=== PATIENT | male | born 1990 | race Hispanic/Latino ===

== ENCOUNTER 2016-08-03 20:54 | Emergency (ER) | payer OTHER ==
[~2016-08-03] VITALS: Ht 170.2 cm; Wt 87.5 kg
[2016-08-03 23:13] LABS: HEMATOCRIT 41.5 % (38.0-50.0); MCH 25.9 PG (29.0-34.0); MCHC 32.3 G/DL (30.0-36.0); MCV 80.1 FL (86-99); MEAN PLAT.VOLUME 9.3 uM^3 (9.0-12.4); PLATELET COUNT 562 K/uL (156-360); RBC DIS.WIDTH-CV 13.1 % (11.8-14.6); RED BLOOD COUNT 5.18 M/uL (4.00-5.50); WHITE BLOOD COUNT 14.1 K/uL (4.1-10.2)
[2016-08-03 23:25] LABS: CHLORIDE 98 mEq/L (99-109); POTASSIUM 4.4 mEq/L (3.7-5.4); SODIUM 134 mEq/L (136-147)
[2016-08-03 23:27] LABS: GLUCOSE 100 mg/dL (70-99)
[2016-08-03 23:29] LABS: ANION GAP 11 MEQ/L (2-14); TOTAL BILIRUBIN 0.4 mg/dL (0.0-1.0)
[2016-08-03 23:31] LABS: ALKALINE PHOSPHATASE 342 IU/L (3-129); GFR ESTIMATE (CALCULATED) > 59 mL/min/
[2016-08-03 23:32] LABS: UREA NITROGEN (BUN) 18 mg/dL (9-23)
[2016-08-03 23:34] LABS: LIPASE 32 U/L (1.0-51.0)
[2016-08-04 00:49] LABS: ADD MIUA? YES; BILIRUBIN NEGATIVE; BLOOD SMALL; COLOR YELLOW ((YELLOW)); GLUCOSE (STRIP) NEGATIVE; KETONES NEGATIVE; LEUKOCYTES NEGATIVE; NITRITE NEGATIVE; PROTEIN (STRIP) 30; SPECIFIC GRAVITY 1.025 (1.000-1.030); UROBILINOGEN 0.2 MG/DL (0.2-1.0)
[2016-08-04 01:25] LABS: BACTERIA NONE SEEN /HPF; EPITHELIAL CELLS NONE SEEN /HPF; MUCUS TRACE /LPF; RED BLOOD CELLS 0-5 /HPF (0-5); UCUL ADDED? NO; WHITE BLOOD CELLS 0-5 /HPF (0-5)
[2016-08-04] MEDS ORDERED: PERCOCET 5/31 TABLET PO (03:15)
[2016-08-04 03:45] VITALS: BP 96/89
== END 2016-08-04 03:56 | disposition home or self-care (01) ==
LOC: EME 20:54
PROVIDERS: Emergency Medicine
DX: G89.18 Other acute postprocedural pain (principal); R94.5 Abnormal results of liver function studies; S31.105A Unspecified open wound of abdominal wall, periumbilic region without penetration into peritoneal cavity, initial encounter; Z93.3 Colostomy status; Z90.49 Acquired absence of other specified parts of digestive tract
CPT/HCPCS: 74177; 80053; 81003; 83605; 83690; 85027; 99281; 99285; J2270; J2405; J7030

== ENCOUNTER 2016-08-05 21:56 | Emergency (ER) | payer OTHER ==
[~2016-08-05] VITALS: Ht 172.7 cm; Wt 89.3 kg
[~2016-08-05 21:56] MED LIST: PERCOCET 5/31 TABLET PO
[2016-08-05 22:33] LABS: HEMATOCRIT 37.1 % (38.0-50.0); MCH 26.1 PG (29.0-34.0); MCHC 31.8 G/DL (30.0-36.0); MCV 82.1 FL (86-99); MEAN PLAT.VOLUME 9.5 uM^3 (9.0-12.4); PLATELET COUNT 462 K/uL (156-360); RBC DIS.WIDTH-CV 13.2 % (11.8-14.6); RBC DIS.WIDTH-SD 39.7 % (39-53); RED BLOOD COUNT 4.52 M/uL (4.00-5.50); WHITE BLOOD COUNT 10.8 K/uL (4.1-10.2)
[2016-08-05 22:43] LABS: CHLORIDE 106 mEq/L (99-109); POTASSIUM 4.2 mEq/L (3.7-5.4); SODIUM 139 mEq/L (136-147)
[2016-08-05 22:45] LABS: GLUCOSE 106 mg/dL (70-99)
[2016-08-05 22:46] LABS: ANION GAP 8 MEQ/L (2-14)
[2016-08-05 22:48] LABS: TOTAL BILIRUBIN 0.2 mg/dL (0.0-1.0)
[2016-08-05 22:49] LABS: GFR ESTIMATE (CALCULATED) > 59 mL/min/
[2016-08-05 22:50] LABS: UREA NITROGEN (BUN) 13 mg/dL (9-23)
[2016-08-05 22:57] LABS: ALKALINE PHOSPHATASE 255 IU/L (3-129)
[2016-08-06 00:27] LABS: ADD MIUA? NO; BILIRUBIN NEGATIVE; BLOOD NEGATIVE; COLOR YELLOW ((YELLOW)); GLUCOSE (STRIP) NEGATIVE; KETONES NEGATIVE; LEUKOCYTES NEGATIVE; NITRITE NEGATIVE; PROTEIN (STRIP) 30; SPECIFIC GRAVITY 1.031 (1.000-1.030); UCUL ADDED? NO; UROBILINOGEN 0.2 MG/DL (0.2-1.0)
[2016-08-06 11:13] VITALS: BP 101/55
== END 2016-08-06 11:14 | disposition short-term general hospital (02) ==
LOC: EME 21:56
DX: K51.90 Ulcerative colitis, unspecified, without complications (principal); T81.30XA Disruption of wound, unspecified, initial encounter; Y83.3 Surgical operation with formation of external stoma as the cause of abnormal reaction of the patient, or of later complication, without mention of misadventure at the time of the procedure; R10.9 Unspecified abdominal pain; G89.18 Other acute postprocedural pain; R50.82 Postprocedural fever; Z93.3 Colostomy status; Z09 Encounter for follow-up examination after completed treatment for conditions other than malignant neoplasm
CPT/HCPCS: 74177; 80053; 81003; 83605; 85027; 87040; 99281; 99285; J0692; J2270; J2405; J7030; J7050

== ENCOUNTER 2016-09-06 07:49 | Emergency (ER) | payer OTHER ==
[~2016-09-06] VITALS: Ht 172.7 cm; Wt 85.5 kg
[2016-09-06 09:29] LABS: EOSINOPHIL (%) 0.5 % (0-5); EOSINOPHIL COUNT 0.1 K/uL (0-0.3); HEMATOCRIT 42.2 % (38.0-50.0); IMMATURE GRANULOCYTE (%) 0.3 % (0.0-0.7); INSTRUMENT ABS NEUTROPHIL CT 7.1 K/uL; LYMPHOCYTE COUNT 2.3 K/uL (1.0-2.8); MCHC 32.9 G/DL (30.0-36.0); MCV 78.9 FL (86-99); MEAN PLAT.VOLUME 10.4 uM^3 (9.0-12.4); MONOCYTE (%) 6.9 % (3-12); MONOCYTE COUNT 0.7 K/uL (0-0.8); NEUTROPHIL (%) 69.3 % (45-76); NEUTROPHIL COUNT 7.1 K/uL (1.8-6.4); PLATELET COUNT 300 K/uL (156-360); RBC DIS.WIDTH-CV 13.8 % (11.8-14.6); RBC DIS.WIDTH-SD 39.2 % (39-53); RED BLOOD COUNT 5.35 M/uL (4.00-5.50); WHITE BLOOD COUNT 10.3 K/uL (4.1-10.2)
[2016-09-06 09:37] LABS: CHLORIDE 102 mEq/L (99-109); POTASSIUM 3.3 mEq/L (3.7-5.4); SODIUM 136 mEq/L (136-147)
[2016-09-06 09:39] LABS: GLUCOSE 114 mg/dL (70-99)
[2016-09-06 09:40] LABS: ANION GAP 11 MEQ/L (2-14)
[2016-09-06 09:41] LABS: TOTAL BILIRUBIN 0.8 mg/dL (0.0-1.0)
[2016-09-06 09:43] LABS: ALKALINE PHOSPHATASE 304 IU/L (3-129); GFR ESTIMATE (CALCULATED) > 59 mL/min/
[2016-09-06 09:44] LABS: UREA NITROGEN (BUN) 7 mg/dL (9-23)
[2016-09-06 09:49] LABS: TROP-I INTERPRETATION NEGATIVE; TROPONIN-I < 0.01 ng/mL (0.0-0.30)
[2016-09-06 09:56] LABS: ADD MIUA? YES; BILIRUBIN NEGATIVE; BLOOD NEGATIVE; COLOR YELLOW ((YELLOW)); GLUCOSE (STRIP) NEGATIVE; KETONES NEGATIVE; LEUKOCYTES TRACE; NITRITE NEGATIVE; PROTEIN (STRIP) NEGATIVE; SPECIFIC GRAVITY 1.011 (1.000-1.030); UROBILINOGEN 0.2 MG/DL (0.2-1.0)
[2016-09-06 10:01] LABS: BACTERIA RARE /HPF; CALCIUM OXALATE CRYSTALS 2+ /HPF; EPITHELIAL CELLS RARE /HPF; GRANULAR CASTS 0-5 /LPF; MUCUS NONE SEEN /LPF; RED BLOOD CELLS 0-5 /HPF (0-5); UCUL ADDED? NO; URIC ACID CRYSTALS 1+ /HPF; WHITE BLOOD CELLS 15-20 /HPF (0-5)
[2016-09-06] MEDS ORDERED: KEFLEX500 MG PO (13:02)
[2016-09-06] MEDS ORDERED: K-DUR20 MEQ PO (13:02)
[2016-09-06] MEDS ORDERED: ZOFRAN4 MG PO (13:02)
[2016-09-06 14:52] VITALS: BP 126/85
[2016-09-07] MEDS ORDERED: PERCOCET 5/31 TABLET PO (14:04)
[2016-09-07] MEDS ORDERED: ZOFRAN4 MG PO (14:04)
== END 2016-09-06 14:52 | disposition home or self-care (01) ==
LOC: EME 07:49
PROVIDERS: Emergency Medicine
DX: N39.0 Urinary tract infection, site not specified (principal); E87.6 Hypokalemia; K51.90 Ulcerative colitis, unspecified, without complications; Z90.49 Acquired absence of other specified parts of digestive tract; Z93.3 Colostomy status
CPT/HCPCS: 71020; 71275; 74177; 80053; 81003; 83605; 84484; 85025; 87040; 93005; 99281; 99284; J2405; J3010

== ENCOUNTER 2016-09-07 10:59 | Emergency (ER) | payer OTHER ==
[~2016-09-07] VITALS: Ht 172.7 cm; Wt 85.6 kg
[~2016-09-07 10:59] MED LIST changes: +K-DUR20 MEQ PO; +KEFLEX500 MG PO; +ZOFRAN4 MG PO
[2016-09-07 11:38] LABS: HEMATOCRIT 38.7 % (38.0-50.0); MCH 26.4 PG (29.0-34.0); MCHC 32.8 G/DL (30.0-36.0); MCV 80.5 FL (86-99); MEAN PLAT.VOLUME 10.9 uM^3 (9.0-12.4); PLATELET COUNT 236 K/uL (156-360); RBC DIS.WIDTH-SD 41.1 % (39-53); RED BLOOD COUNT 4.81 M/uL (4.00-5.50); WHITE BLOOD COUNT 7.9 K/uL (4.1-10.2)
[2016-09-07 11:53] LABS: CHLORIDE 108 mEq/L (99-109); POTASSIUM 3.7 mEq/L (3.7-5.4); SODIUM 139 mEq/L (136-147)
[2016-09-07 11:55] LABS: GLUCOSE 97 mg/dL (70-99)
[2016-09-07 11:56] LABS: ANION GAP 10 MEQ/L (2-14)
[2016-09-07 11:58] LABS: GFR ESTIMATE (CALCULATED) > 59 mL/min/
[2016-09-07 11:59] LABS: UREA NITROGEN (BUN) 8 mg/dL (9-23)
[2016-09-07 12:01] LABS: TROP-I INTERPRETATION NEGATIVE; TROPONIN-I < 0.01 ng/mL (0.0-0.30)
[2016-09-07] MEDS ORDERED: PERCOCET 5/31 TABLET PO (14:04)
[2016-09-07] MEDS ORDERED: ZOFRAN4 MG PO (14:04)
[2016-09-07 14:22] VITALS: BP 133/94
== END 2016-09-07 14:28 | disposition home or self-care (01) ==
LOC: EME 10:59
DX: G89.29 Other chronic pain (principal); R07.9 Chest pain, unspecified; R10.9 Unspecified abdominal pain; Z90.49 Acquired absence of other specified parts of digestive tract; Z93.3 Colostomy status; T81.30XA Disruption of wound, unspecified, initial encounter; R11.0 Nausea; K51.90 Ulcerative colitis, unspecified, without complications
CPT/HCPCS: 71020; 80048; 84484; 85027; 93005; 99281; 99284

== ENCOUNTER 2017-07-22 19:51 | Emergency (ER) | payer SELFPAY ==
[~2017-07-22] VITALS: Ht 175.3 cm; Wt 74.3 kg
[2017-07-22 20:28] LABS: HEMATOCRIT 40.6 % (38.0-50.0); HEMOGLOBIN 13.2 G/DL (12.5-16.6); MCHC 32.5 G/DL (30.0-36.0); MCV 76.7 FL (86-99); RBC DIS.WIDTH-CV 16.9 % (11.8-14.6); RBC DIS.WIDTH-SD 47.2 % (39-53); RED BLOOD COUNT 5.29 M/uL (4.00-5.50); WHITE BLOOD COUNT 9.3 K/uL (4.1-10.2)
[2017-07-22 20:37] LABS: CHLORIDE 105 mEq/L (99-109); POTASSIUM 4.3 mEq/L (3.7-5.4); SODIUM 140 mEq/L (136-147)
[2017-07-22 20:38] LABS: MAGNESIUM 2.3 mg/dL (1.3-2.7)
[2017-07-22 20:39] LABS: GLUCOSE 117 mg/dL (70-99)
[2017-07-22 20:43] LABS: CREATININE 1.1 mg/dL (0.6-1.3); GFR ESTIMATE (CALCULATED) > 59 mL/min/ (58.99-99999)
[2017-07-22 20:44] LABS: UREA NITROGEN (BUN) 10 mg/dL (9-23)
[2017-07-22 20:45] LABS: CREATINE KINASE 74 IU/L (1-294)
[2017-07-22 20:50] LABS: APPEARANCE CLEAR ((CLEAR)); BILIRUBIN NEGATIVE; BLOOD NEGATIVE; COLOR YELLOW ((YELLOW)); GLUCOSE (STRIP) NEGATIVE; KETONES NEGATIVE; LEUKOCYTES NEGATIVE; NITRITE NEGATIVE; PROTEIN (STRIP) NEGATIVE; SPECIFIC GRAVITY 1.019 (1.000-1.030); UROBILINOGEN 0.2 MG/DL (0.2-1.0)
[2017-07-22 21:33] LABS: PLAT.SUFFICIENCY ADEQUATE; PLATELET COUNT 273 K/uL (156-360)
[2017-07-22] MEDS ORDERED: FIORICET 50-301 EAC1 PO (22:21)
[2017-07-22] MEDS ORDERED: ZOFRAN ODT4 MG PO (22:21)
[2017-07-22] MEDS ORDERED: MOTRIN800 MG PO (22:21)
[2017-07-22 22:31] VITALS: BP 137/88
== END 2017-07-22 22:32 | disposition home or self-care (01) ==
LOC: EME 19:51
PROVIDERS: Physician Assistant
DX: R51 Headache (principal); R42 Dizziness and giddiness; R11.0 Nausea; R63.4 Abnormal weight loss
CPT/HCPCS: 80048; 81003; 82550; 83735; 85027; 87502; 99281; 99284; J1885; J2405; J7030